=== PATIENT | female | born 1960 | race Caucasian/White ===

== ENCOUNTER 2017-09-06 08:03 | Emergency (ER) | payer OTHER ==
[~2017-09-06] VITALS: Ht 157.5 cm; Wt 69.7 kg
[2017-09-06 08:04] VITALS: Ht 157.5 cm; Wt 69.7 kg
[2017-09-06] MEDS ORDERED: MED4DP PO (09:17)
[2017-09-06] MEDS ORDERED: PHEN177S43 MT (09:17)
--- NOTE | 2017-09-06 09:22 | ERD ---
ER Documentation Chief Complaint Chief Complaint sorethroat & hoarseness x2 days HPI Patient is a 57-year-old female presenting to the emergency department with complaints of sore throat and hoarse voice for 2 days. Associated symptoms include mild cough and tactile fevers at nighttime. Symptoms are intermittent, overall mild in severity. She denies other symptoms at this time. ROS All systems reviewed and are negative except as per history of present illness. Medications Home Meds Active Scripts Phenol* (Chloraseptic* Seaman) 177 Ml Seaman.pump, 2 SPRAY MT Q2H Y for SORE THROAT, #1 BOTTLE Prov:SABAS BERRIOS PA-C 09/06/17 Methylprednisolone* (Medrol* DOSE PACK) 4 Mg/Dose-Pack Tab.ds.pk, 4 MG PO . DIRECTED, #1 PACKET Prov:SABAS BERRIOS PA-C 09/06/17 Reported Medications [None] No Conflict Check 10/22/12 Allergies Allergies: Coded Allergies: No Known Allergies (Verified Allergy, 10/22/12) PMhx/Soc Hx Alcohol Use: No Hx Substance Use: No Hx Tobacco Use: No Physical Exam Vitals Vital Signs Date Time Temp Pulse Resp B/P Pulse Ox O2 Delivery O2 Flow Rate FiO2 09/06/17 08:04 98.1 71 18 177/95 98 Physical Exam Const: Nontoxic, well-appearing female in no acute distress. Head: Atraumatic Eyes: Normal Conjunctiva ENT: Normal External Ears, Nose and Mouth. Posterior pharynx is slightly erythematous, but no tonsillar hypertrophy, or exudate noted. He is clear. No uvular deviation. Resp: Clear to auscultation bilaterally Cardio: Regular rate and rhythm, no murmurs Skin: No petechiae or rashes Neur: Awake and alert Psych: Normal Mood and Affect Procedures/MDM Patient is a pleasant 57-year-old female presenting to the emergency department with complaints of hoarseness and sore throat. History and physical examination consistent with laryngitis. Rapid strep was negative. Patient stable for discharge with prescriptions. No evidence of life-threatening pathology at time of discharge. Pt/family in agreement with discharge plan/ diagnosis. Pt/family advised to return immediately with any new or worsening symptoms. Follow-up with primary care physician within the next 1-2 days. Departure Diagnosis: Primary Impression: Sore throat Additional Impression: Laryngitis Condition: Fair Patient Instructions: Self-Care for Sore Throats [facility] Usted se adams hecho un examen mdico de control que le indica que no est en trish condicin que requiera tratamiento urgente en el Departamento de Emergencia. Un estudio ms profundo y el tratamiento de rodriguez condicin pueden esperar sin ningn riesgo hasta que usted sea atendida/o en el consultorio de rodriguez mdico o trish cl manjit. Es responsabilidad suya arreglar trish lucy para el seguimiento del shahab. MANEJO DE CONDICIONES NO URGENTES EN EL FUTURO 1) Si usted tiene un mdico de atencin primaria: Usted debera llamar a rodriguez mdico de atencin primaria antes de venir al departamento de emergencia. Despus de las horas de consultorio, rodriguez doctor o rodriguez asociado/a est disponible por telfono. El mdico o enfermero de mani en el servicio telefnico puede asesorarle por umu medio para atender el problema, o shahab contrario se puede programar trish lucy. 2) Si usted no tiene un mdico de atencin primaria: Llame al mdico o clnica de referencia que aparece abajo eliezer las horas de consultorio para hacer trish lucy para que le vean. CLINICAS: [facility] [phone] [facility] [phone] [facility] [phone] [facility]. [facility] [phone] [place] [phone] [facility]. [phone] [address] Additional Instructions: Llame al doctor ETHANANA y wojciech trish LUYC PARA DENTRO DE 1-2 HICKS.Dgale a la secretaria que nosotros le instruimos hacer esta lucy.Avise o llame si rodriguez condicin se empeora antes de la lucy. Regresa aqui si peor o no mejor. SABAS BERRIOS PA-C Sep 06, 2017 09:22
== END 2017-09-06 09:41 | disposition home or self-care (01) ==
LOC: FTE 08:03
DX: J02.9 Acute pharyngitis, unspecified (principal); J04.0 Acute laryngitis
CPT/HCPCS: 87880; Z7502; 99283